=== PATIENT | female | born 1955 | race African-American/Black ===

== ENCOUNTER 2017-04-20 23:37 | Inpatient (IN) | payer MEDICARE, MEDICAID ==
[~2017-04-20] VITALS: Ht 177.8 cm; Wt 48.2 kg
[2017-04-21] VITALS (12 sets, daily range): BP systolic 105–119; BP diastolic 57–70
[2017-04-21 00:09] LABS: Eosinophils # (auto) 0 uL; Mean Corpuscular Hgb Conc. 31.8 g/dL (32.0-36.0); Monocytes # (auto) 0.7 uL; Monocytes % (auto) 4.4 % (0.0-12.0)
[2017-04-21 00:12] LABS: Basophils # (auto) 0.1 uL; Basophils % (auto) 0.6 % (0.0-2.0); Eosinophils % (auto) 0.1 % (0.0-7.0); Hematocrit 23.3 % (36.0-46.0); Hemoglobin 7.4 g/dL (12.2-16.2); Lymphocytes # (auto) 0.9 uL; Lymphocytes % (auto) 5.6 % (10.0-50.0); Mean Corpuscular Hemoglobin 25.7 pg (28.0-32.0); Mean Corpuscular Volume 80.6 fL (80.0-100.0); Neutrophils # (auto) 14.6 uL; Neutrophils % (auto) 89.3 % (37.0-80.0); Platelet Count (auto) 700 10^3/uL (140-450); Red Blood Cells 2.89 10^6/uL (4.0-5.20); Red Cell Distribution Width 17.5 % (11.8-14.3); White Blood Cell 16.4 10^3/uL (4.4-10.8)
[2017-04-21 00:33] LABS: Alanine Aminotransferase 9 U/L (13-56); Albumin 2.5 g/dL (3.4-5.0); Anion Gap 8 (5-15); Aspartate Aminotransferase 9 U/L (15-37); BUN/Creatinine Ratio 40.7; Blood Urea Nitrogen 24 mg/dL (7-18); Calcium 8.7 mg/dL (8.5-10.1); Carbon Dioxide 28 mmol/L (21-32); Chloride 96 mmol/L (98-107); GFR African American 133 mL/min; GFR Non-African American 110 mL/min; Glucose 125 mg/dL (74-106); Potassium 4.2 mmol/L (3.5-5.1); Sodium 132 mmol/L (136-145)
[2017-04-21 00:38] LABS: Alkaline Phosphatase 83 U/L (45-117); Bilirubin, Total 0.2 mg/dL (0.2-1.0); Total Protein 7.9 g/dL (6.4-8.2)
[2017-04-21] MEDS ORDERED: PANTOPRAZOLE 40 MG/10 ML VIAL IV ONE ×2 (00:57→01:30)
[2017-04-21] MEDS ORDERED: ONDANSETRON HCL 4 MG/2 ML VIAL IV ONE ×2 (01:30→04:45)
[2017-04-21] MEDS ORDERED: SODIUM CHLORIDE 0.9% 1,000 ML IV ONE (01:30)
[2017-04-21] MEDS ORDERED: HYDROmorphone HCL 2 MG/ML VL IV ONE (01:30)
[2017-04-21] MEDS ORDERED: MORPHINE SULFATE 10 MG/ML INJ 1ML SDV IV ONE ×2 (02:30→04:45)
[2017-04-21] MEDS ORDERED: LORazepam 2MG/ML-1ML VIAL IV PRN (06:45)
[2017-04-21] MEDS ORDERED: ONDANSETRON HCL 4 MG/2 ML VIAL IV PRN (06:45)
[2017-04-21 06:55] LABS: Urine Specific Gravity 1.029 (1.001-1.035)
[2017-04-21 06:56] LABS: Urine Blood Negative /uL (Negative)
[2017-04-21 06:57] LABS: Urine WBC 12 /hpf (0 - 5)
[2017-04-21 06:58] LABS: Urine Bacteria 2+ /hpf (None Seen); Urine Hyaline Cast 2+ /lpf (0 - 2); Urine Mucus FEW (None Seen)
[2017-04-21] MEDS ORDERED: VANCOMYCIN PER PHARMACY 0 MG IV SCH (07:00)
[2017-04-21 08:03] LABS: Albumin 2.4 g/dL (3.4-5.0); Bilirubin, Total 0.2 mg/dL (0.2-1.0); Calcium 7.8 mg/dL (8.5-10.1); Potassium 4.3 mmol/L (3.5-5.1)
[2017-04-21] MEDS ORDERED: VANCOMYCIN 1GM/250ML 250 ML IV ONE (08:15)
[2017-04-21 08:21] LABS: Basophils # (auto) 0 uL; Basophils % (auto) 0.3 % (0.0-2.0); Eosinophils # (auto) 0 uL; Hematocrit 21.2 % (36.0-46.0); Lymphocytes % (auto) 6.5 % (10.0-50.0); Mean Corpuscular Hemoglobin 25.2 pg (28.0-32.0); Mean Corpuscular Hgb Conc. 31.2 g/dL (32.0-36.0); Mean Corpuscular Volume 80.7 fL (80.0-100.0); Monocytes # (auto) 0.7 uL; Monocytes % (auto) 4.4 % (0.0-12.0); Neutrophils # (auto) 13.2 uL; Neutrophils % (auto) 88.8 % (37.0-80.0); Platelet Count (auto) 587 10^3/uL (140-450); Red Blood Cells 2.63 10^6/uL (4.0-5.20); Red Cell Distribution Width 17.6 % (11.8-14.3); White Blood Cell 14.8 10^3/uL (4.4-10.8)
[2017-04-21 08:43] LABS: Hemoglobin 6.6 g/dL (12.2-16.2)
[2017-04-21] MEDS: cefTRIAXone 1GM/10ml IVPUSH 10 ML IV SCH (08:49)
[2017-04-21] MEDS: MORPHINE SULFATE 10 MG/ML INJ 1ML SDV IV PRN ×3 (08:49→22:32)
[2017-04-21 10:48] LABS: INR 0.95 (0.9-1.15); Prothrombin Time 10.4 sec (9.37-12.3)
[2017-04-21 22:25] LABS: Hematocrit 31.8 % (36.0-46.0); Hemoglobin 10.1 g/dL (12.2-16.2)
[2017-04-21] MEDS: SOD CHL 0.45% WITH 20MEQ KCL 1,000 ML IV SCH (22:32)
[2017-04-22] VITALS: BP 102/57
[2017-04-22 04:00] VITALS: BP 97/66
[2017-04-22] MEDS: MORPHINE SULFATE 10 MG/ML INJ 1ML SDV IV PRN ×4 (04:37→20:19)
[2017-04-22] MEDS ORDERED: VANCOMYCIN 750 MG in D5W 5% 250 ML IV SCH (05:00)
[2017-04-22 05:56] LABS: Basophils # (auto) 0 uL; Basophils % (auto) 0.2 % (0.0-2.0); Eosinophils # (auto) 0 uL; Mean Corpuscular Hgb Conc. 32.2 g/dL (32.0-36.0); Monocytes # (auto) 0.6 uL
[2017-04-22 05:58] LABS: Lymphocytes # (auto) 0.9 uL; Lymphocytes % (auto) 8.8 % (10.0-50.0); Mean Corpuscular Volume 83.8 fL (80.0-100.0); Monocytes % (auto) 6.2 % (0.0-12.0); Neutrophils # (auto) 8.2 uL; Neutrophils % (auto) 84.8 % (37.0-80.0); Nucleated Red Blood Cells % 0.1 %; Platelet Count (auto) 550 10^3/uL (140-450); Red Cell Distribution Width 16.4 % (11.8-14.3); White Blood Cell 9.7 10^3/uL (4.4-10.8)
[2017-04-22 06:14] LABS: Calcium 8.1 mg/dL (8.5-10.1); Potassium 3.7 mmol/L (3.5-5.1)
[2017-04-22 06:16] LABS: BUN/Creatinine Ratio 38.5
[2017-04-22 08:00] VITALS: BP 94/25
[2017-04-22] MEDS: cefTRIAXone 1GM/10ml IVPUSH 10 ML IV SCH (09:24)
[2017-04-22] MEDS: SOD CHL 0.45% WITH 20MEQ KCL 1,000 ML IV SCH ×2 (10:35→23:55)
[2017-04-22 12:00] VITALS: BP 122/63
[2017-04-22] MEDS ORDERED: GASTROGRAFIN 120 ML SOL ONE (13:11)
[2017-04-22] MEDS ORDERED: DOCU-94 PO (15:46)
[2017-04-22] MEDS ORDERED: ONDA4TAB5 PO (15:46)
[2017-04-22] MEDS ORDERED: MORP-109 PO ×2 (15:46)
[2017-04-22] MEDS ORDERED: PERCOT PO (15:46)
[2017-04-22] MEDS ORDERED: LORA-655 PO (15:46)
[2017-04-22 15:56] VITALS: BP 113/73
[2017-04-22 22:00] VITALS: BP 113/51
[2017-04-23] MEDS: MORPHINE SULFATE 10 MG/ML INJ 1ML SDV IV PRN ×5 (00:41→22:20)
[2017-04-23 06:00] VITALS: BP 116/60
[2017-04-23 08:00] VITALS: BP 116/68
[2017-04-23] MEDS: DOCUSATE SOD 100 MG CAP PO SCH ×2 (10:00→22:00)
[2017-04-23 12:00] VITALS: BP 121/65
[2017-04-23] MEDS: SOD CHL 0.45% WITH 20MEQ KCL 1,000 ML IV SCH (13:23)
[2017-04-23] MEDS ORDERED: MORPHINE SULFATE 10 MG/5 ML ORAL SOLN PO ONE (13:30)
[2017-04-23] MEDS ORDERED: MORPHINE SULF 30 mg ER tab PO ONE (15:00)
[2017-04-23 16:21] VITALS: BP 121/70
[2017-04-23] MEDS: MORPHINE SULF 30 mg ER tab PO SCH (21:30)
[2017-04-23 22:00] VITALS: BP 128/78
[2017-04-24] MEDS: SOD CHL 0.45% WITH 20MEQ KCL 1,000 ML IV SCH (03:15)
[2017-04-24] MEDS: MORPHINE SULFATE 10 MG/ML INJ 1ML SDV IV PRN ×2 (03:18→07:48)
[2017-04-24 05:00] VITALS: BP 120/77
[2017-04-24 07:39] VITALS: BP 119/69
[2017-04-24] MEDS: DOCUSATE SOD 100 MG CAP PO SCH (10:00)
[2017-04-24] MEDS: MORPHINE SULF 30 mg ER tab PO SCH (10:39)
[2017-04-24 11:11] VITALS: BP 119/69
[2017-04-24 11:29] VITALS: BP 121/76
== END 2017-04-24 11:50 | disposition hospice, home (50) | DRG 388 ==
LOC: EDBD 23:37 → ER 23:42 → TELE 23:43 → DOU IN ICU 04-21 15:11 → CENTRAL 04-22 17:25
PROVIDERS: ADMIT Nurse Practitioner Family; ATTEND Internal Medicine
PROC: 30233N1 Transfusion of Nonautologous Red Blood Cells into Peripheral Vein, Percutaneous Approach (ICD-10-PCS; principal; 2017-04-21)
DX: K56.600 Partial intestinal obstruction, unspecified as to cause (principal); E43 Unspecified severe protein-calorie malnutrition; C78.6 Secondary malignant neoplasm of retroperitoneum and peritoneum; G93.89 Other specified disorders of brain; I31.3 Pericardial effusion (noninflammatory); E87.1 Hypo-osmolality and hyponatremia; R18.8 Other ascites; R65.10 Systemic inflammatory response syndrome (SIRS) of non-infectious origin without acute organ dysfunction; Z68.1 Body mass index [BMI] 19.9 or less, adult; C55 Malignant neoplasm of uterus, part unspecified; D64.9 Anemia, unspecified; F02.80 Dementia in other diseases classified elsewhere, unspecified severity, without behavioral disturbance, psychotic disturbance, mood disturbance, and anxiety; G30.9 Alzheimer's disease, unspecified; G89.29 Other chronic pain; K46.9 Unspecified abdominal hernia without obstruction or gangrene; N83.201 Unspecified ovarian cyst, right side; R62.7 Adult failure to thrive; Z66 Do not resuscitate; Z85.43 Personal history of malignant neoplasm of ovary
CPT/HCPCS: 36415; 36430; 70450; 74176; 74250; 80048; 80053; 81001; 83735; 83880; 84484; 85014; 85018; 85025; 85610; 86850; 86900; 86901; 86920; 87040; 93005; 93306; 96365; 96375; 96376; C9113; J2405; J7060

== ENCOUNTER 2017-07-02 08:38 | Emergency (ER) | payer MEDICARE, MEDICAID ==
[~2017-07-02] VITALS: Ht 167.6 cm; Wt 49.9 kg
[~2017-07-02 08:38] MED LIST: DOCU-94 PO; LORA-655 PO; MORP-109 PO; ONDA4TAB5 PO; PERCOT PO
[2017-07-02] MEDS ORDERED: SODIUM BICARBONATE 8.4% INJ 50ML SYRINGE IV ONE (08:39)
[2017-07-02] MEDS ORDERED: EPINEPHrine HCL 1 MG/10 ML SYRG IV ONE (08:39)
[2017-07-02 08:45] VITALS: BP 0/0
== END 2017-07-02 08:46 | disposition expired ==
LOC: ER 08:38 → EDBD 08:38 → EDUNIT# 08:38 → ER 08:46
DX: I46.9 Cardiac arrest, cause unspecified (principal)
CPT/HCPCS: 92950; 99291; J0171